=== PATIENT | male | born 1995 | race Caucasian/White ===

== ENCOUNTER 2018-04-25 00:28 | Emergency (ER) | payer OTHER ==
[2018-04-25 01:50] LABS: BASO % 0.4 % (0.0-1.0); EOS % 0.4 % (0.0-3.0); HEMOGLOBIN 14.7 g/dl (13.5-17.5); IMMATURE GRANULOCYTE % 0.4 % (0-3.0); LYMPH # 1.4 10^3/uL (1.5-6.5); LYMPH % 13.4 % (24.0-44.0); MEAN CORPUSCULAR HGB CONC 34.2 g/dl (32.0-36.5); MEAN CORPUSCULAR VOLUME 93.7 fl (80.0-96.0); MONO % 9.7 % (0.0-5.0); NEUTROPHILS # 7.7 10^3/uL (1.8-7.7); NEUTROPHILS % 75.7 % (36.0-66.0); PLATELET COUNT, AUTOMATED 282 10^3/uL (150-450); RED BLOOD COUNT 4.59 10^6/uL (4.30-6.10); RED CELL DISTRIBUTION WIDTH 14.8 % (11.5-14.5); WHITE BLOOD COUNT 10.1 10^3/uL (4.0-10.0)
[2018-04-25 02:08] LABS: ANION GAP 8 MEQ/L (8-16); BLOOD UREA NITROGEN 14 MG/DL (7-18); CALCIUM LEVEL 8.5 MG/DL (8.5-10.1); CARBON DIOXIDE LEVEL 29 MEQ/L (21-32); CHLORIDE LEVEL 102 MEQ/L (98-107); CREATININE FOR GFR 1.37 MG/DL (0.70-1.30); ETHYL ALCOHOL (ETHANOL) < 0.003 % (0.000-0.010); GLOMERULAR FILTRATION RATE > 60.0 (>60); GLUCOSE, FASTING 90 MG/DL (70-100); POTASSIUM SERUM 3.4 MEQ/L (3.5-5.1); SODIUM LEVEL 139 MEQ/L (136-145)
[2018-04-25 03:39] LABS: LACTIC ACID SEPSIS PROTOCOL 1.1 MMOL/L (0.4-2.0)
[2018-04-25] MEDS: NS 1,000 ML IV (04:30)
[2018-04-25] MEDS: ACETAMINOPHEN TAB 650MG DOSE (2X325MG) PO (04:30)
[2018-04-25 06:03] LABS: APPEARANCE, URINE HAZY (CLEAR); BACTERIA, URINE AUTO NEGATIVE (NEGATIVE); BILIRUBIN, URINE AUTO NEGATIVE (NEGATIVE); BLOOD, URINE BLOOD NEGATIVE (NEGATIVE); COLOR, URINE YELLOW (YELLOW); GLUCOSE, URINE (UA) AUTO NEGATIVE (NEGATIVE); KETONE, URINE AUTO NEGATIVE (NEGATIVE); LEUKOCYTE ESTERASE, URINE AUTO NEGATIVE (NEGATIVE); MUCUS, URINE SMALL (NEGATIVE); NITRITE, URINE AUTO NEGATIVE (NEGATIVE); PROTEIN, URINE AUTO NEGATIVE (NEGATIVE); RBC, URINE AUTO 2 /HPF (0-3); SPECIFIC GRAVITY URINE AUTO 1.009 (1.002-1.035); SQUAMOUS EPITHELIAL CELL UR AU 0 /HPF (0-6); UROBILINOGEN, URINE AUTO 0.2 mg/dL (0.0-2.0); WBC, URINE AUTO 3 /HPF (0-3)
[2018-04-25 06:19] LABS: AMPHETAMINES LEVEL URINE NEGATIVE (NEGATIVE); BARBITURATES URINE NEGATIVE (NEGATIVE); BENZODIAZEPINES URINE NEGATIVE (NEGATIVE); CANNABINOIDS URINE NEGATIVE (NEGATIVE); COCAINE METABOLITE URINE NEGATIVE (NEGATIVE); METHADONE URINE NEGATIVE (NEGATIVE); OPIATES URINE NEGATIVE (NEGATIVE); PHENCYCLIDINE URINE NEGATIVE (NEGATIVE)
== END 2018-04-25 06:47 | disposition home or self-care (01) ==
LOC: M ED 00:28
DX: R55 Syncope and collapse (principal); Z79.899 Other long term (current) drug therapy
CPT/HCPCS: 70450

== ENCOUNTER 2018-05-08 19:13 | Emergency (ER) | payer OTHER ==
[2018-05-08] MEDS: dexameTHASONE 20 MG/5 ML VIAL (J1100) IV (19:45)
[2018-05-08 20:17] LABS: BASO % 0.3 % (0.0-1.0); HEMATOCRIT 42.2 % (42.0-52.0); HEMOGLOBIN 14.1 g/dl (13.5-17.5); IMMATURE GRANULOCYTE % 0.8 % (0-3.0); LYMPH # 0.9 10^3/uL (1.5-6.5); LYMPH % 11.5 % (24.0-44.0); MEAN CORPUSCULAR HEMOGLOBIN 32.4 pg (27.0-33.0); MEAN CORPUSCULAR HGB CONC 33.4 g/dl (32.0-36.5); MONO # 0.4 10^3/uL (0.0-0.8); MONO % 4.4 % (0.0-5.0); NEUTROPHILS # 6.7 10^3/uL (1.8-7.7); PLATELET COUNT, AUTOMATED 239 10^3/uL (150-450); RED BLOOD COUNT 4.35 10^6/uL (4.30-6.10); RED CELL DISTRIBUTION WIDTH 14.7 % (11.5-14.5)
[2018-05-08] MEDS: ACETAMINOPHEN 325 MG TAB PO (20:30)
[2018-05-08 20:47] LABS: ANION GAP 12 MEQ/L (8-16); BLOOD UREA NITROGEN 8 MG/DL (7-18); CALCIUM LEVEL 8.1 MG/DL (8.5-10.1); CARBON DIOXIDE LEVEL 26 MEQ/L (21-32); CHLORIDE LEVEL 118 MEQ/L (98-107); CREATININE FOR GFR 0.94 MG/DL (0.70-1.30); GLOMERULAR FILTRATION RATE > 60.0 (>60); GLUCOSE, FASTING 108 MG/DL (70-100); POTASSIUM SERUM 4.2 MEQ/L (3.5-5.1); SODIUM LEVEL 156 MEQ/L (136-145)
== END 2018-05-08 21:35 | disposition home or self-care (01) ==
LOC: M ED 19:13
DX: R55 Syncope and collapse (principal); I10 Essential (primary) hypertension; K21.9 Gastro-esophageal reflux disease without esophagitis; E27.40 Unspecified adrenocortical insufficiency; Z79.899 Other long term (current) drug therapy
CPT/HCPCS: J1100

== ENCOUNTER 2018-06-19 14:01 | Emergency (ER) | payer OTHER ==
[2018-06-19 14:48] LABS: VENOUS BASE EXCESS 4.7 (-2.0-2.0); VENOUS HCO3 30.9 MEQ/L (23.0-27.0); VENOUS O2 SATURATION 87.3 % (60.0-80.0); VENOUS PARTIAL PRESSURE CO2 50.5 mmHg (38.0-50.0); VENOUS PARTIAL PRESSURE O2 55.8 mmHg (30.0-50.0); VENOUS PH 7.405 UNITS (7.330-7.430); VENOUS STANDARD HCO3 28.4 MEQ/L; VENOUS TOTAL CO2 32.5 MEQ/L (24.0-28.0)
[2018-06-19 14:52] LABS: BASO # 0.1 10^3/uL (0.0-0.2); BASO % 0.6 % (0.0-1.0); EOS % 0.2 % (0.0-3.0); HEMATOCRIT 51.7 % (42.0-52.0); HEMOGLOBIN 17.1 g/dl (13.5-17.5); IMMATURE GRANULOCYTE % 1.7 % (0-3.0); LYMPH # 1.6 10^3/uL (1.5-6.5); LYMPH % 18.9 % (24.0-44.0); MEAN CORPUSCULAR HEMOGLOBIN 32.7 pg (27.0-33.0); MEAN CORPUSCULAR HGB CONC 33.1 g/dl (32.0-36.5); MEAN CORPUSCULAR VOLUME 98.9 fl (80.0-96.0); MONO # 0.6 10^3/uL (0.0-0.8); MONO % 6.6 % (0.0-5.0); NEUTROPHILS # 6.2 10^3/uL (1.8-7.7); PLATELET COUNT, AUTOMATED 237 10^3/uL (150-450); RED BLOOD COUNT 5.23 10^6/uL (4.30-6.10); WHITE BLOOD COUNT 8.7 10^3/uL (4.0-10.0)
[2018-06-19 15:17] LABS: ACETAMINOPHEN LEVEL < 2.0 UG/ML (10.0-30.0); ALBUMIN 3.8 GM/DL (3.2-5.2); ALBUMIN/GLOBULIN RATIO 1.19 (1.00-1.93); ALKALINE PHOSPHATASE 68 U/L (45-117); ALT/SGPT 53 U/L (12-78); ANION GAP 8 MEQ/L (8-16); AST/SGOT 15 U/L (7-37); BILIRUBIN,DIRECT 0.1 MG/DL (0.0-0.2); BILIRUBIN,TOTAL 0.4 MG/DL (0.2-1.0); BLOOD UREA NITROGEN 14 MG/DL (7-18); CARBON DIOXIDE LEVEL 31 MEQ/L (21-32); CHLORIDE LEVEL 104 MEQ/L (98-107); CK-MB VALUE MASS < 1.0 NG/ML (<3.6); CPK CREATINE PHOSPHOKINASE 37 U/L (39-308); CREATININE FOR GFR 1.19 MG/DL (0.70-1.30); ETHYL ALCOHOL (ETHANOL) 0.238 % (0.000-0.010); GLOMERULAR FILTRATION RATE > 60.0 (>60); GLUCOSE, FASTING 108 MG/DL (70-100); POTASSIUM SERUM 4.1 MEQ/L (3.5-5.1); SALICYLATE LEVEL < 1.7 MG/DL (5.0-30.0); SODIUM LEVEL 143 MEQ/L (136-145); THYROID STIMULATING HORMONE 0.318 uIU/ML (0.358-3.740); TROPONIN I < 0.02 NG/ML (< 0.10)
[2018-06-19 17:08] LABS: AMPHETAMINES LEVEL URINE NEGATIVE (NEGATIVE); BARBITURATES URINE NEGATIVE (NEGATIVE); BENZODIAZEPINES URINE NEGATIVE (NEGATIVE); CANNABINOIDS URINE NEGATIVE (NEGATIVE); COCAINE METABOLITE URINE NEGATIVE (NEGATIVE); METHADONE URINE NEGATIVE (NEGATIVE); OPIATES URINE NEGATIVE (NEGATIVE); PHENCYCLIDINE URINE NEGATIVE (NEGATIVE)
== END 2018-06-19 17:40 | disposition home or self-care (01) ==
LOC: M ED 14:01
DX: F10.229 Alcohol dependence with intoxication, unspecified (principal)
CPT/HCPCS: 71045

== ENCOUNTER 2018-07-30 22:38 | Emergency (ER) | payer OTHER ==
[~2018-07-30] VITALS: Ht 172.7 cm; Wt 63.6 kg
[~2018-07-30 22:38] MED LIST: ATEN50TA2 PO; HYDR-3291 PO; HYDR10VL IM; NYQU1LIQ PO; OMEP40CA2 PO; TRAZ-160 PO
[2018-07-30] MEDS ORDERED: MULTIVITAMIN -ADULT INJECTION 10 ML, THIAMINE INJection 100 MG, FOLIC ACID 1 MG in NS 1... IV ONE ×2 (23:15→23:30)
[2018-07-30 23:48] VITALS: BP 125/57
== END 2018-07-31 01:20 | disposition home or self-care (01) ==
LOC: M ED 22:38
DX: F10.120 Alcohol abuse with intoxication, uncomplicated (principal); I10 Essential (primary) hypertension; K21.9 Gastro-esophageal reflux disease without esophagitis; R51 Headache; E27.1 Primary adrenocortical insufficiency; Z79.899 Other long term (current) drug therapy
CPT/HCPCS: 99284; J3411

== ENCOUNTER → 2018-11-04 | Outpatient (CLI) | payer OTHER ==
[~2018-11-04] MED LIST changes: -HYDR-3291 PO; +HYDR-4513 PO
--- NOTE | 2018-11-04 15:26 | REP ---
BILATERAL MAMMOGRAM WITH BILATERAL BREAST ULTRASOUND: Patient complains of palpable lumps for the past 2 months in each breast with tenderness. MLO and CC views of both breasts performed. Ill-defined fibroglandular tissue is seen symmetrically in the retroareolar regions bilaterally. Findings have the appearance of mild bilateral symmetrical gynecomastia. No other mass or clustered microcalcifications are seen bilaterally. Real-time sonographic evaluation of bilateral breasts performed. There is fibroglandular tissue symmetrically in the retroareolar regions bilaterally corresponding to the mammographic findings. The tissue is fairly symmetrical in size. IMPRESSION: BIRADS 2: BI-RADS/ACR category 2 mammogram. Benign Findings. ACR 2 benign. There are mammographic and sonographic findings of mild bilateral symmetrical gynecomastia in the retroareolar regions. I see no suspicious mass bilaterally. ACR 2 benign. The patient letter being requested is M2. Electronically Signed by Morgan Handley MD 11/07/2018 01:43 P
== END ==
LOC: M RAD 13:57
PROVIDERS: ATTEND Family Medicine
DX: Z12.31 Encounter for screening mammogram for malignant neoplasm of breast (principal)

== ENCOUNTER 2018-12-20 12:49 | Emergency (ER) | payer OTHER ==
[~2018-12-20] VITALS: Ht 172.7 cm; Wt 80.9 kg
[~2018-12-20 12:49] MED LIST changes: -TRAZ-160 PO; +TRAZ-252 PO
[2018-12-20] MEDS ORDERED: ESZO1TAB6 PO (13:05)
[2018-12-20] MEDS ORDERED: LEXA1TAB PO (13:05)
[2018-12-20] MEDS ORDERED: MELA3TAB24 PO (13:05)
[2018-12-20] MEDS ORDERED: TIZA4CAP PO (13:05)
[2018-12-20] MEDS ORDERED: ZONI100C2 PO (13:05)
[2018-12-20] MEDS ORDERED: NS 1,000 ML IV ONE (13:30)
[2018-12-20 13:50] LABS: BASO # 0.1 10^3/uL (0.0-0.2); BASO % 0.6 % (0.0-1.0); EOS # 0.1 10^3/uL (0.0-0.50); HEMATOCRIT 47.4 % (42.0-52.0); HEMOGLOBIN 15.8 g/dl (13.5-17.5); LYMPH # 1.3 10^3/uL (1.5-6.5); MEAN CORPUSCULAR HGB CONC 33.3 g/dl (32.0-36.5); MEAN CORPUSCULAR VOLUME 89.9 fl (80.0-96.0); MONO # 0.5 10^3/uL (0.0-0.8); MONO % 6.5 % (0.0-5.0); NEUTROPHILS # 6.2 10^3/uL (1.8-7.7); NEUTROPHILS % 75.7 % (36.0-66.0); PLATELET COUNT, AUTOMATED 235 10^3/uL (150-450); RED BLOOD COUNT 5.27 10^6/uL (4.30-6.10); WHITE BLOOD COUNT 8.2 10^3/uL (4.0-10.0)
[2018-12-20 14:12] LABS: AMPHETAMINES LEVEL URINE NEGATIVE (NEGATIVE); BARBITURATES URINE NEGATIVE (NEGATIVE); BENZODIAZEPINES URINE NEGATIVE (NEGATIVE); CANNABINOIDS URINE NEGATIVE (NEGATIVE); COCAINE METABOLITE URINE NEGATIVE (NEGATIVE); METHADONE URINE NEGATIVE (NEGATIVE); OPIATES URINE NEGATIVE (NEGATIVE); PHENCYCLIDINE URINE NEGATIVE (NEGATIVE)
[2018-12-20 14:22] LABS: ALBUMIN 4.2 GM/DL (3.2-5.2); ALT/SGPT 26 U/L (12-78); BILIRUBIN,TOTAL 0.7 MG/DL (0.2-1.0); BLOOD UREA NITROGEN 5 MG/DL (7-18); CALCIUM LEVEL 9.6 MG/DL (8.5-10.1); CARBON DIOXIDE LEVEL 27 MEQ/L (21-32); CHLORIDE LEVEL 108 MEQ/L (98-107); CREATININE FOR GFR 1.16 MG/DL (0.70-1.30); FREE T4 1.01 NG/DL (0.76-1.46); GLOMERULAR FILTRATION RATE > 60.0 (>60); GLUCOSE, FASTING 89 MG/DL (70-100); POTASSIUM SERUM 4.4 MEQ/L (3.5-5.1); SODIUM LEVEL 140 MEQ/L (136-145); TOTAL PROTEIN 7.1 GM/DL (6.4-8.2)
[2018-12-20 14:28] VITALS: BP 102/59
== END 2018-12-20 14:56 | disposition home or self-care (01) ==
LOC: M ED 12:49
DX: E86.0 Dehydration (principal); I95.9 Hypotension, unspecified; E27.40 Unspecified adrenocortical insufficiency; I10 Essential (primary) hypertension; K21.9 Gastro-esophageal reflux disease without esophagitis; R51 Headache; Z79.899 Other long term (current) drug therapy

== ENCOUNTER → 2019-01-25 | Outpatient (CLI) | payer OTHER ==
[~2019-01-25] MED LIST changes: +ESZO1TAB6 PO; +LEXA1TAB PO; +MELA3TAB24 PO; +TIZA4CAP PO; +ZONI100C2 PO
--- NOTE | 2019-01-25 09:25 | REP ---
CT of the abdomen and pelvis without IV or bowel contrast for renal calculus: There are no comparisons. There are two right renal calculi measuring 2 mm at the mid pole and 7 mm at the lower pole. There are at least six left renal calculi measuring from 2-5 mm. There is no hydronephrosis. There is no perinephric stranding. There are no ureteral calculi. There are no bladder calculi. The visualized lung moore are unremarkable. The unenhanced hepatic parenchyma, gallbladder, pancreas, spleen, adrenals and abdominal aorta are unremarkable. There is no bowel distension or obstruction. Mesentery is unremarkable. Pelvis: There are surgical clips in the right lower quadrant compatible with appendectomy. There is no ascites or adenopathy. The pelvic bowel loops are unremarkable. Impression: There are multiple nonobstructive renal calculi bilaterally as described. No hydronephrosis. No ureteral or bladder calculi. Appendectomy. Electronically Signed by Morgan Wolfe MD 01/25/2019 09:16 A
== END ==
LOC: M RAD 07:01
PROVIDERS: ATTEND Family Medicine
DX: N20.0 Calculus of kidney (principal)

== ENCOUNTER 2019-02-14 13:37 | Emergency (ER) | payer OTHER ==
[~2019-02-14] VITALS: Ht 172.7 cm; Wt 75.0 kg
[~2019-02-14 13:37] MED LIST changes: -OMEP40CA2 PO; +OMEP40CA97 PO; +ZONI100C17 PO; -ZONI100C2 PO
[2019-02-14] MEDS ORDERED: MIRA3350 (13:43)
[2019-02-14] MEDS ORDERED: KETO10TAB (13:43)
[2019-02-14] MEDS ORDERED: DOCU100C16 (13:43)
[2019-02-14] MEDS ORDERED: TAMS1CAP17 (13:44)
[2019-02-14] MEDS ORDERED: ZOLP10TA2 PO (13:44)
[2019-02-14] MEDS ORDERED: oxyCODONE 5MG TAB PO ONE (14:30)
--- NOTE | 2019-02-14 15:04 | REP ---
ABDOMEN FLAT PLATE, TWO VIEWS: HISTORY: Abdominal distention. A small amount of air is present in the intestine. There are no air fluid levels or dilated loops of intestine. There is no pneumoperitoneum. Calcifications are present overlying the right kidney consistent with nephrolithiasis. Surgical clips are present in the mid right lateral abdomen. IMPRESSION: 1. Nonspecific bowel gas pattern. 2. Right nephrolithiasis. Electronically Signed by Jesse Ivey MD 02/14/2019 03:07 P
[2019-02-14] MEDS ORDERED: METHYLNALTREXONE BROMIDE 12 MG/0.6 ML VIAL (RELISTOR) SC ONE (15:15)
[2019-02-14] MEDS ORDERED: MAGNESIUM CITRATE 300 ML BTL PO ONE (16:30)
[2019-02-14 16:42] VITALS: BP 136/85
== END 2019-02-14 16:46 | disposition home or self-care (01) ==
LOC: M ED 13:37
DX: K59.00 Constipation, unspecified (principal); I10 Essential (primary) hypertension; Z79.899 Other long term (current) drug therapy

== ENCOUNTER 2019-03-31 11:07 | Inpatient (IN) | payer OTHER ==
[~2019-03-31] VITALS: Ht 172.7 cm; Wt 73.2 kg
[~2019-03-31 11:07] MED LIST changes: +DOCU100C16; +KETO10TAB; +MIRA3350; +OMEP40CA2 PO; -OMEP40CA97 PO; +TAMS1CAP17; +ZOLP10TA2 PO; -ZONI100C17 PO; +ZONI100C2 PO
[2019-03-31] MEDS ORDERED: LEXA1TAB2 PO (11:29)
[2019-03-31] MEDS ORDERED: TIZA4CAP PO (11:29)
[2019-03-31] MEDS ORDERED: TEST5GEL TOP (11:29)
[2019-03-31] MEDS ORDERED: MELA3TAB41 PO (11:29)
[2019-03-31] MEDS ORDERED: D-50CAP PO (11:29)
[2019-03-31] MEDS ORDERED: NICO1KIT TOP (11:29)
[2019-03-31] MEDS ORDERED: NS 1,000 ML IV ONE (11:30)
[2019-03-31 11:38] LABS: BASO % 0.5 % (0.0-1.0); EOS # 0.1 10^3/uL (0.0-0.5); EOS % 1.4 % (0.0-3.0); HEMATOCRIT 40.8 % (42.0-52.0); HEMOGLOBIN 13.4 g/dl (13.5-17.5); LYMPH % 18.1 % (24.0-44.0); MEAN CORPUSCULAR HEMOGLOBIN 29.9 pg (27.0-33.0); MEAN CORPUSCULAR HGB CONC 32.8 g/dl (32.0-36.5); MEAN CORPUSCULAR VOLUME 91.1 fl (80.0-96.0); MONO # 0.5 10^3/uL (0.0-0.8); NEUTROPHILS % 70.8 % (36.0-66.0); PLATELET COUNT, AUTOMATED 204 10^3/uL (150-450); RED BLOOD COUNT 4.48 10^6/uL (4.30-6.10); WHITE BLOOD COUNT 5.6 10^3/uL (4.0-10.0)
[2019-03-31] MEDS ORDERED: HYDROCORTISONE 100 MG/2 ML VIAL (J1720) IV ONE (12:30)
[2019-03-31 12:37] LABS: ALT/SGPT 18 U/L (12-78); BILIRUBIN,DIRECT 0.1 MG/DL (0.0-0.2); BILIRUBIN,TOTAL 0.5 MG/DL (0.2-1.0); BLOOD UREA NITROGEN 6 MG/DL (7-18); CARBON DIOXIDE LEVEL 28 MEQ/L (21-32); CHLORIDE LEVEL 108 MEQ/L (98-107); CREATININE FOR GFR 0.87 MG/DL (0.70-1.30); GLOMERULAR FILTRATION RATE > 60.0 (>60); GLUCOSE, FASTING 105 MG/DL (70-100); LIPASE 48 U/L (73-393); POTASSIUM SERUM 3.7 MEQ/L (3.5-5.1); SODIUM LEVEL 143 MEQ/L (136-145); TOTAL PROTEIN 5.2 GM/DL (6.4-8.2)
--- NOTE | 2019-03-31 12:46 | REP ---
PA and lateral chest: There are no comparisons. The lung moore are clear. The cardiac size is normal. The [place], mediastinum, and skeletal structures are unremarkable. Impression: Negative PA and lateral chest. Electronically Signed by Morgan Wolfe MD 03/31/2019 12:37 P
[2019-03-31] MEDS ORDERED: NICO21DI37 TD (13:30)
[2019-03-31] MEDS ORDERED: SILD25TA PO (13:30)
[2019-03-31] MEDS ORDERED: TIZA4TAB4 PO (13:30)
[2019-03-31] MEDS ORDERED: ACETAMINOPHEN TAB 650MG DOSE (2X325MG) PO PRN (13:30)
[2019-03-31] MEDS ORDERED: IBUP80TA PO (13:30)
[2019-03-31] MEDS ORDERED: ZONI50CA PO (13:30)
[2019-03-31] MEDS ORDERED: NICO2GUM8 PO (13:30)
[2019-03-31] MEDS: KCL 20MEQ in NS 1000ML 1,000 ML IV SCH ×2 (13:59→21:59)
[2019-03-31 14:30] VITALS: BP 117/58
[2019-03-31] MEDS ORDERED: IBUPROFEN 800 MG TAB PO PRN (14:30)
[2019-03-31] MEDS ORDERED: OMEPRAZOLE 20 MG CAP PO PRN (14:30)
[2019-03-31] MEDS ORDERED: NICOTINE POLACRILEX 2 MG GUM PO PRN (14:30)
[2019-03-31 14:47] VITALS: BP 127/83
[2019-03-31 17:00] VITALS: BP 120/71
[2019-03-31] MEDS: ESCITALOPRAM OXALATE 10 MG TAB (LEXAPRO) PO SCH (17:20)
[2019-03-31] MEDS: HYDROCORTISONE 100 MG/2 ML VIAL (J1720) IV SCH (18:25)
[2019-03-31] MEDS ORDERED: HYDROCORTISONE 100 MG/2 ML VIAL (J1720) IV SCH (19:00)
--- NOTE | 2019-03-31 19:10 | ECGEPIP ---
[facility] - ED Test Date: 2019-03-31 Pat Name: MABLE RUTH Department: Room: [place] [address] Gender: Male [employer] Operator: ct : 1995 Requested By: ELSY Garcia Order Number: [id number] Reading MD: Casper Black Measurements Intervals [place] Rate: 48 P: 35 FL: 141 QRS: 47 QRSD: 88 T: 44 QT: 492 QTc: 440 Interpretive Statements SINUS BRADYCARDIA RATE CHANGE COMPARED TO 06/19/18 Electronically Signed on 03-31-2019 19:09:56 EDT by Casper Black
[2019-03-31 20:00] VITALS: BP 144/80
[2019-03-31] MEDS: ZONISAMIDE 50 MG CAP (ZONEGRAN) PO SCH (20:36)
[2019-03-31] MEDS: zolPIDEM CR 6.25MG TABLET (AMBIEN CR) PO PRN (21:07)
[2019-04-01] VITALS: BP 143/82
[2019-04-01] MEDS: HYDROCORTISONE 100 MG/2 ML VIAL (J1720) IV SCH ×2 (01:00→06:33)
[2019-04-01] MEDS: RAMELTEON 8 MG TAB (ROZEREM) PO PRN ×2 (01:09→20:40)
[2019-04-01] MEDS ORDERED: tiZANidine 4 MG TAB PO ONE (02:30)
[2019-04-01 04:00] VITALS: BP 128/78
[2019-04-01 04:56] LABS: HEMATOCRIT 43.4 % (42.0-52.0); HEMOGLOBIN 14.5 g/dl (13.5-17.5); MEAN CORPUSCULAR HEMOGLOBIN 29.5 pg (27.0-33.0); MEAN CORPUSCULAR HGB CONC 33.4 g/dl (32.0-36.5); MEAN CORPUSCULAR VOLUME 88.2 fl (80.0-96.0); PLATELET COUNT, AUTOMATED 271 10^3/uL (150-450); RED BLOOD COUNT 4.92 10^6/uL (4.30-6.10); WHITE BLOOD COUNT 14.2 10^3/uL (4.0-10.0)
[2019-04-01 05:12] LABS: ALBUMIN 3.3 GM/DL (3.2-5.2); ALT/SGPT 20 U/L (12-78); BILIRUBIN,TOTAL 0.6 MG/DL (0.2-1.0); BLOOD UREA NITROGEN 5 MG/DL (7-18); CALCIUM LEVEL 8.4 MG/DL (8.5-10.1); CARBON DIOXIDE LEVEL 25 MEQ/L (21-32); CHLORIDE LEVEL 109 MEQ/L (98-107); CREATININE FOR GFR 0.82 MG/DL (0.70-1.30); GLOMERULAR FILTRATION RATE > 60.0 (>60); GLUCOSE, FASTING 126 MG/DL (70-100); POTASSIUM SERUM 3.7 MEQ/L (3.5-5.1); SODIUM LEVEL 142 MEQ/L (136-145); TOTAL PROTEIN 6.2 GM/DL (6.4-8.2)
[2019-04-01 08:00] VITALS: BP 117/58
[2019-04-01] MEDS: ESCITALOPRAM OXALATE 10 MG TAB (LEXAPRO) PO SCH (08:18)
--- NOTE | 2019-04-01 10:24 | IPNPDOC ---
Subjective Date Seen The patient was seen on 04/01/19. Subjective Chief Complaint/HPI doing fine this am. Has not had any recurrent symptoms of lightheadedness, hypotension or diarrhea since administration of stress dose steroids. Constitutional: Denies: Chills, Fever, Malaise, Night Sweats, Weakness, Fatig ue, Weight Loss, Lethargy, Other Skin: Denies: Rash, Lesions, Jaundice, Bruising, Itching, Dry, Breakdown, Nail Changes, Other Gastrointestinal: Denies: Nausea, Vomiting, Abdominal Pain, Diarrhea, Constipation, Melena, Hematochezia, Other Symptoms Musculoskeletal: Denies: Neck Pain, Back Pain, Shoulder Pain, Arm Pain, Hand Pain, Leg Pain, Foot Pain, Joint Pain, Muscle Pain, Spasms, Other Symptoms Neurological: Denies: Weakness, Numbness, Incoordination, Change in speech, Confusion, Seizures, Other Symptoms Psych: Denies: Mood Normal, Anxiety, Depression, Memory Issues, Thoughts of Se lf Harm, Anger, Thoughts of Harming Other, Other Psych Assessment /Plan Assessment # Acute secondary adrenal insufficiency - stop IV hydrocortisone - start hydrocortisone 10 mg qAM, 5 mg qPM - saline lock IV - monitor in PCU for next 24 hours if stable then home tomor # Insomnia - continue rameleton and ambien 10 mg qhs prn # Depression - continue lexapro # Tobbaco abuse disorder - continue nicorette gum prn # DVT prophylaxis: ambulate prn, low risk for DVT # Dispo: Home in am if symptoms managed with oral hydrocortisone Plan/VTE VTE Prophylaxis Ordered?: No VTE Exclusion Mechanical Proph: Low Risk for VTE VTE Exclusion Pharmacological: At Low Risk for VTE VS, I&O, 24H, [facility] Vital Signs/I&O Vital Signs Date Time Temp Pulse Resp B/P (MAP) Pulse Ox O2 Delivery O2 Flow Rate FiO2 04/01/19 04:00 98.7 54 16 128/78 (95) 95 03/31/19 14:07 Room Air I&O- Last 24 Hours up to 6 AM 04/01/19 06:00 Intake Total 2030 ml Output Total 2875 ml Balance -845 ml Laboratory Data 24H LABS Laboratory Tests 2 03/31/19 11:29: Immature Granulocyte % (Auto) 0.2, White Blood Count 5.6, Red Blood Count 4.48, Hemoglobin 13.4L, Hematocrit 40.8L, Mean Corpuscular Volume 91.1, Mean Corpuscular Hemoglobin 29.9, Mean Corpuscular Hemoglobin Concent 32.8, Red Cell Distribution Width 13.6, Platelet Count 204, Neutrophils (%) (Auto) 70.8H, Lymphocytes (%) (Auto) 18.1L, Monocytes (%) (Auto) 9.0H, Eosinophils (%) (Auto) 1.4, Basophils (%) (Auto) 0.5, Neutrophils # (Auto) 4.0, Lymphocytes # (Auto) 1.0L, Monocytes # (Auto) 0.5, Eosinophils # (Auto) 0.1, Basophils # (Auto) 0.0, Nucleated Red Blood Cells % (auto) 0.0, Anion Gap 7L, Glomerular Filtration Rate > 60.0, Calcium Level 8.0L, Aspartate Amino Transf (AST/SGOT) 15, Alanine Aminotransferase (ALT/SGPT) 18, Alkaline Phosphatase 92, Total Bilirubin 0.5, Direct Bilirubin 0.1, Total Protein 5.2L, Albumin 3.0L, Albumin/Globulin Ratio 1.36, Lipase 48L 04/01/19 04:26: Nucleated Red Blood Cells % (auto) 0.0, Anion Gap 8, Glomerular Filtration Rate > 60.0, Calcium Level 8.4L, Aspartate Amino Transf (AST/SGOT) 11, Alanine Aminotransferase (ALT/SGPT) 20, Alkaline Phosphatase 106, Total Bilirubin 0.6, Total Protein 6.2L, Albumin 3.3, Albumin/Globulin Ratio 1.14, Blood Urea Nitrogen 5L, Creatinine 0.82, Sodium Level 142, Potassium Level 3.7, Chloride Level 109H, Carbon Dioxide Level 25 CBC/BMP Laboratory Tests 03/31/19 11:29 Red Blood Count 4.48, Mean Corpuscular Volume 91.1, Mean Corpuscular Hemoglobin 29.9, Mean Corpuscular Hemoglobin Concent 32.8, Red Cell Distribution Width 13.6, Neutrophils (%) (Auto) 70.8 H, Lymphocytes (%) (Auto) 18.1 L, Monocytes (%) (Auto) 9.0 H, Eosinophils (%) (Auto) 1.4, Basophils (%) (Auto) 0.5, Neutrophils # (Auto) 4.0, Lymphocytes # (Auto) 1.0 L, Monocytes # (Auto) 0.5, Eosinophils # (Auto) 0.1, Basophils # (Auto) 0.0 04/01/19 04:26 Red Blood Count 4.92, Mean Corpuscular Volume 88.2, Mean Corpuscular Hemoglobin 29.5, Mean Corpuscular Hemoglobin Concent 33.4, Red Cell Distribution Width 13.5, Calcium Level 8.4 L, Aspartate Amino Transf (AST/SGOT) 11, Alanine Aminotransferase (ALT/SGPT) 20, Alkaline Phosphatase 106, Total Bilirubin 0.6, Total Protein 6.2 L, Albumin 3.3 HERMELINDA ROGERS MD Apr 01, 2019 10:24
--- NOTE | 2019-04-01 10:58 | HPE ---
DATE OF ADMISSION: 03/31/2019 TIME: 2 p.m. CHIEF COMPLAINT: Is a patient in presyncopal [place]. HISTORY OF PRESENT ILLNESS: Mr. Quintero is a pleasant 23-year-old gentleman who happens to have a history of adrenal insufficiency dating back to at least 2018. At that time, the patient was deployed to [place] when he developed appendicitis. He underwent an appendectomy; and subsequently, this was complicated by infection; and he necessitated high doses of steroids. Thereafter, he was diagnosed with adrenal insufficiency and had been on hydrocortisone for the last 5 months, which they had tapered off approximately 3 weeks ago. His ancillary medical comorbid conditions include depression, as well as insomnia, associated with the chronic steroids that he has been on. [place] started experiencing lightheadedness and felt that he was going to pass out. When they took him to be evaluated, he was found to have a systolic blood pressure in the 70s. He was treated with intravenous (IV) fluids with improvement in systolic blood pressure to the 90s. In addition, he had developed diarrhea. He had some upper respiratory symptoms. He otherwise denies having any sick contacts. He was treated with 2 liters of normal saline prior to admission to the hospital and then also received IV hydrocortisone 100 mg in the ER department. He will be admitted to the hospitalist service for treatment of adrenal insufficiency. His allergies are no known drug allergies. His current home medications that he is taking are the following: - Lexapro 20 mg by mouth daily - ibuprofen 800 mgj every 6 hours as needed for pain - Nicorette gum - omeprazole 40 mg daily - as well as zonisamide PAST MEDICAL HISTORY: Is notable for renal insufficiency. His past surgical history is notable for appendectomy, as well as a lipoma removal. SOCIAL HISTORY: The patient is currently in active duty in the [employer]. He does not use drugs or alcohol. He chews tobacco. He lists his mother, Asuncion, who lives in the [place], [place], area as his medical surrogate decision-maker. He is a [employer]. FAMILY HISTORY: Is notable for hypertension and alcoholism. REVIEW OF SYSTEMS: 12-system review, the patient otherwise negative except what is mentioned in HPI. On examination this afternoon, the patient's temperature is 97.2, pulse was 55, respiratory rate was 18, blood pressure on arrival to ER was 106/69 with IV fluids infusing, oxygen (O2) saturation is 96% on room air. General: Britton is a healthy-appearing male who wears eyeglasses. He appears in no acute distress. He is resting comfortably. His head is atraumatic, normocephalic. His pupils are symmetric and reactive to light. Oropharynx is clear without exudate, erythema, or thrush. Neck is supple. Lung sounds are present bilaterally without rales, wheezes, or rhonchi. Heart is S1, S2. No murmurs, rubs, or gallops. Abdomen is soft, nontender, nondistended with active bowel sounds. Extremities are without any significant cyanosis, clubbing, or edema. PERTINENT LABORATORIES: Are the following: White count is 5.6, hemoglobin 13.4, hematocrit 40.8, platelet counts are 204. Sodium 143, potassium 3.7, chloride 108, bicarbonate is 28, creatinine is 0.87, glucose is 105, calcium is 8, total bilirubin is 0.5, direct bilirubin is 0.1, AST is 15, ALT is 18, alkaline phosphatase is 92, lipase is 48. IMAGING STUDIES: Chest x-ray one view showed no acute pathology upon my review. The radiology report also confirms this. IMPRESSION: 1. Acute adrenal insufficiency. 2. Tobacco abuse disorder. 3. Depression. 4. Insomnia. PLAN: The patient will be admitted to the progressive care unit (PCU) for close monitoring. He will be placed on stress-dosed steroids, hydrocortisone 50 mg IV every 6 and then will be transitioned to oral prednisone. Anticipate he will need a minimum of two midnight hospital stay. to treat this patient in the hospital could be to adrenal shock and . The patient will be continued on his Lexapro, ibuprofen, Nicorette gum, omeprazole, and zonisamide. He does not warrant deep venous thrombosis (DVT) prophylaxis, as he is at low risk for DVT.
[2019-04-01] MEDS: tiZANidine 4 MG TAB PO PRN ×2 (11:29→20:40)
[2019-04-01] MEDS: HYDROCORTISONE 10 MG TAB PO SCH (11:29)
[2019-04-01 12:00] VITALS: BP 128/70
[2019-04-01 15:53] VITALS: BP 115/57
[2019-04-01 20:00] VITALS: BP 136/85
[2019-04-01] MEDS: zolPIDEM CR 6.25MG TABLET (AMBIEN CR) PO PRN (20:40)
[2019-04-01] MEDS: ZONISAMIDE 50 MG CAP (ZONEGRAN) PO SCH (20:40)
[2019-04-01] MEDS ORDERED: HYDROCORTISONE 5MG TABLET PO SCH (21:00)
[2019-04-02] VITALS: BP 123/72
[2019-04-02 04:00] VITALS: BP 129/76
[2019-04-02] MEDS: tiZANidine 4 MG TAB PO PRN (05:08)
[2019-04-02 06:15] VITALS: BP 130/82
[2019-04-02 08:00] VITALS: BP 130/64
[2019-04-02] MEDS: HYDROCORTISONE 10 MG TAB PO SCH (08:21)
[2019-04-02] MEDS: ESCITALOPRAM OXALATE 10 MG TAB (LEXAPRO) PO SCH (08:21)
[2019-04-02] MEDS ORDERED: CORT10TA PO (08:46)
[2019-04-02] MEDS ORDERED: CORT5TAB2 PO (08:46)
--- NOTE | 2019-04-02 08:50 | IPNPDOC ---
Subjective Date Seen The patient was seen on 04/02/19. Subjective Chief Complaint/HPI asymptomatic, tolerating hydrocortisone 10 & 5. No orthostasis noted. Objective Physical Examination General Exam: Negative: Alert, Cooperative, No Acute Distress, Mild Distress, Moderate Distress, Severe Distress, Other Eye Exam: Positive: PERRLA, Conjunctiva & lids normal; Negative: Sclera icteric ENT Exam: Positive: Atraumatic, Mucous membr. moist/pink Neck Exam: Positive: Supple; Negative: JVD, thyromegaly Chest Exam: Positive: Clear to auscultation Heart Exam: Positive: Rate Normal, Regular Rhythm, Normal S1, Normal S2 Telemetry: Positive: No significant arrhythmia Abdomen Exam: Positive: Normal bowel sounds Extremity Exam: Positive: Normal pulses; Negative: Clubbing, Cyanosis, Edema Skin Exam: Positive: Nl turgor and temperature; Negative: Rash, Breakdown Neuro Exam: Positive: Normal Speech, Normal Tone Psych Exam: Positive: Mental status NL, Mood NL, Oriented x 3 Assessment /Plan Assessment # Acute secondary adrenal insufficiency - home today - f/u with [facility] team lead in 1-2 weeks - prescription for hydrocortisone 10 mg qAM, and 5 mg qPM provided at discharge # Insomnia - continue rameleton and ambien 10 mg qhs prn # Depression - continue lexapro # Tobbaco abuse disorder - continue nicorette gum prn # DVT prophylaxis: ambulate prn, low risk for DVT # Dispo: Home today Plan/VTE VTE Prophylaxis Ordered?: No VTE Exclusion Mechanical Proph: Low Risk for VTE VTE Exclusion Pharmacological: At Low Risk for VTE VS, I&O, 24H, Fishbone Vital Signs/I&O Vital Signs Date Time Temp Pulse Resp B/P (MAP) Pulse Ox O2 Delivery O2 Flow Rate FiO2 04/02/19 08:00 98.5 65 18 130/64 (86) 96 03/31/19 14:07 Room Air I&O- Last 24 Hours up to 6 AM 04/02/19 06:00 Intake Total 720 ml Output Total 625 ml Balance 95 ml HERMELINDA ROGERS MD Apr 02, 2019 08:50
== END 2019-04-02 10:00 | disposition home or self-care (01) | DRG 645 ==
LOC: M ED 11:07 → EDBD 11:07 → M ED INP 13:20 → M ICU 14:40
PROVIDERS: ADMIT Internal Medicine; ATTEND Internal Medicine
DX: E27.40 Unspecified adrenocortical insufficiency (principal); F17.220 Nicotine dependence, chewing tobacco, uncomplicated; F32.9 Major depressive disorder, single episode, unspecified; G47.00 Insomnia, unspecified; Z79.52 Long term (current) use of systemic steroids; Z90.49 Acquired absence of other specified parts of digestive tract; Z79.899 Other long term (current) drug therapy